=== PATIENT | male | born 1975 | race African-American/Black ===

== ENCOUNTER 2019-04-14 06:00 | Emergency (ER) | payer MEDICAID ==
--- NOTE | 2019-04-14 06:13 | ED Physician Documentation ---
History of Present Illness - Stated complaint Stated Complaint: LUMP ON FACE - Chief complaint Chief Complaint: Heent - History obtained from History obtained from: Patient - Additonal information Additional information: Patient is a previously healthy 43-year-old male presenting with area of pain and swelling to his left lower jaw that began several days ago. Patient reports that he was at his dentist about 2 months ago for multiple tooth extractions on the lower left side and was supposed to follow-up last month for further dental work, but did not. Patient reports pain at the gumline of the left lower back teeth with associated facial swelling overlying this area without redness. Patient denies any gum bleeding or drainage from the mouth, as well as any difficulty swallowing, difficulty breathing, or fever. No other improving or worsening factors noted. Review of Systems Constitutional: denies: Fever Throat: reports: Dental pain / toothache PD PAST MEDICAL HISTORY - Past Medical History Past Medical History: No - Past Surgical History General: Cholecystectomy - Present Medications Home Medications: Ambulatory Orders Medication Instructions Recorded Confirmed Amox/Clav 875/125 [Augmentin] 1 each PO Q12H #14 tablet 04/14/19 - Allergies Allergies/Adverse Reactions: Allergies Allergy/AdvReac Type Severity Reaction Status Date / Time No Known Drug Allergies Allergy Verified 04/14/19 06:09 PD ED PE NORMAL - Vitals Vital signs reviewed: Yes - General General: Alert and oriented X 3, No acute distress, Well developed/nourished - HEENT HEENT: Atraumatic, Moist mucous membranes, Pharynx benign, Other (Approximately quarter sized area of swelling and tenderness to left mid jaw Without other skin changes present). No: Dentition benign (Multiple missing teeth and poor dental hygiene otherwise. Area of tenderness to palpation on left lower gumline without gum swelling or erythema present.) - Respiratory Respiratory: No respiratory distress - Derm Derm: Normal color, Warm and dry, No rash - Extremities Extremities: No deformity, No tenderness to palpate - Neuro Neuro: Alert and oriented X 3, No motor deficit, No sensory deficit - Psych Psych: Normal mood, Normal affect Results - Vitals Vitals: Vital Signs - 24 hr 04/14/19 06:07 Temperature 36.7 C Heart Rate 66 Respiratory 18 Rate Blood Pressure 120/91 H O2 Saturation 96 Oxygen O2 Source Room air PD MEDICAL DECISION MAKING - ED course Complexity details: considered differential, d/w patient ED course: Most concerning for dental abscess given history, location, and physical exam findings. Do not find evidence of tonsillitis, pharyngitis, peritonsillar abscess. Do not have concern for Matt's angina or retropharyngeal abscess. Do not feel this is a facial abscess, but tooth related. Do not feel patient requires other imaging or invasive testing at this time, but discussed use of antibiotics, supportive cares, return precautions, need for dentistry follow-up. Patient voiced understanding and is comfortable with discharge plan. Departure - Departure Clinical Impression: Dental abscess Condition: Good Instructions: ED Abscess Dental Follow-Up: your,dentist [Other] Prescriptions: Amox/Clav 875/125 [Augmentin] 1 each PO Q12H #14 tablet Comments: Please take antibiotics as prescribed to treat dental abscess. Please practice good oral hygiene including flossing, mouthwash, and regular brushing. Please contact dentistry for follow-up in the next 2 to 3 days and return to ED sooner if experience worsening symptoms or other concerns.
[2019-04-14 06:15] VITALS: BP 120/91
== END 2019-04-14 06:30 | disposition home or self-care (01) ==
LOC: ED 06:00
DX: K04.7 Periapical abscess without sinus (principal)
CPT/HCPCS: 99283